=== PATIENT | male | born 1985 | race African-American/Black ===

== ENCOUNTER 2019-02-06 19:44 | Emergency (ER) | payer OTHER ==
[2019-02-06] MEDS ORDERED: Lidocaine 2% EPI 1:200000 MPF* 10 ML VIAL INJ ONE (20:18)
[2019-02-06] MEDS ORDERED: Bupivacaine 0.5% W/EPI SDV* 10 ML VIAL INJ ONE (20:18)
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
[2019-02-06] MEDS ORDERED: Bupivacaine 0.5% W/EPI SDV* 30 ML VIAL INJ ONE (21:00)
[2019-02-06] MEDS ORDERED: Penicillin VK TAB* 250 MG PO ONE ×2 (21:00→21:20)
[2019-02-06] MEDS ORDERED: Lidocaine 2% w/ EPI 1:200,000* 20 ML SDV VIAL INJ ONE (21:00)
[2019-02-06 21:24] VITALS: BP 123/73
== END 2019-02-06 21:23 | disposition home or self-care (01) ==
LOC: ED 19:44
DX: S01.511A Laceration without foreign body of lip, initial encounter (principal); S01.112A Laceration without foreign body of left eyelid and periocular area, initial encounter; Y04.2XXA Assault by strike against or bumped into by another person, initial encounter; Y92.143 Cell of prison as the place of occurrence of the external cause
CPT/HCPCS: 12011; 99282; A9270-GY